=== PATIENT | male | born 1990 | race Caucasian/White ===

== ENCOUNTER 2017-04-19 20:22 | Emergency (ER) | payer BC ==
[~2017-04-19] VITALS: Ht 190.5 cm; Wt 72.7 kg
[~2017-04-19 20:22] MED LIST: CEPHALEXIN500 M1 PO; NORCO 325 MG-51 TAB PO
[2017-04-19 20:26] VITALS: TEMP 98.8
[2017-04-19 22:45] VITALS: BP 115/62; PULSE 48
== END 2017-04-19 23:01 | disposition home or self-care (01) ==
LOC: COL.ER 20:22
DX: T18.120A Food in esophagus causing compression of trachea, initial encounter (principal)
CPT/HCPCS: J2704; J7030